=== PATIENT | male | born 1980 | race Caucasian/White ===

== ENCOUNTER 2019-04-12 10:18 | Emergency (ER) | payer MEDICAID ==
[~2019-04-12] VITALS: Ht 185.4 cm; Wt 67.3 kg
--- NOTE | 2019-04-12 10:25 | NUR ---
No answer to triage x 1.
--- NOTE | 2019-04-12 10:31 | NUR ---
No answer to triage x 2.
[2019-04-12 10:40] VITALS: BP 118/85
[2019-04-12] MEDS ORDERED: ACETAMINOPHEN 500 MG TABLET ONE (11:17)
[2019-04-12] MEDS ORDERED: CYCLOBENZAPRINE 10 MG TABLET ONE (11:17)
[2019-04-12] MEDS ORDERED: CYCLOBENZAPRINE 10 MG TABLET PO ONE (11:30)
[2019-04-12] MEDS ORDERED: ACETAMINOPHEN 500 MG TABLET PO ONE (11:30)
== END 2019-04-12 11:54 | disposition home or self-care (01) ==
LOC: ED 11:52
DX: S39.012A Strain of muscle, fascia and tendon of lower back, initial encounter (principal); Z90.5 Acquired absence of kidney; X58.XXXA Exposure to other specified factors, initial encounter; Y93.89 Activity, other specified; Y92.89 Other specified places as the place of occurrence of the external cause; Y99.8 Other external cause status
CPT/HCPCS: 99283

== ENCOUNTER 2019-05-20 21:10 | Emergency (ER) | payer MEDICAID ==
[~2019-05-20] VITALS: Ht 177.8 cm; Wt 65.1 kg
[2019-05-20 21:19] VITALS: BP 115/81
--- NOTE | 2019-05-20 21:38 | NUR ---
PT NOW INSTRUCTED 2X TO PLACE ALL BELONGINGS IN BAG AND PEE IN URINAL. PT VERBALIZED UNDERSTANDING.
--- NOTE | 2019-05-20 21:50 | NUR ---
pt instructed a third time to place belongings in bag and pee in urinal. pt again verbalized understanding.
--- NOTE | 2019-05-20 22:06 | NUR ---
i have now asked 4x to placed belonings in bag and pee in urnial. pt continues to verbalize understing but will not comply with my directions. JOANNA messer in to re-enforce protocols. pt again verbalized understanding.
--- NOTE | 2019-05-20 22:22 | NUR ---
urine sent to lab and all belongs placed in 1 bag and in locker.
[2019-05-20 22:44] LABS: AMPHETAMINE SCREEN, URINE Positive (Negative); BARBITURATE SCREEN, URINE Negative (Negative); BENZODIAZEPINE SCREEN, URINE Negative (Negative); CANNABINOID SCREEN, URINE Negative (Negative); COCAINE SCREEN, URINE Negative (Negative); METHADONE SCREEN, URINE Negative (Negative); OPIATE SCREEN, URINE Positive (Negative)
[2019-05-20] MEDS ORDERED: LORazepam 1MG TABLET ONE (22:52)
[2019-05-20] MEDS ORDERED: IBUPROFEN 600 MG TABLET ONE (22:52)
[2019-05-20] MEDS ORDERED: LORazepam 1MG TABLET PO ONE (23:00)
[2019-05-20] MEDS ORDERED: IBUPROFEN 600 MG TABLET PO ONE (23:00)
[2019-05-20 23:06] LABS: BASOPHILS # (AUTO) 0.04 x10^3/uL (0-0.1); BASOPHILS % (AUTO) 1 % (0-1); EOSINOPHILS # (AUTO) 0.11 x10^3/uL (0-0.4); EOSINOPHILS % (AUTO) 2 % (1-7); LYMPHOCYTES % (AUTO) 18 % (22-44); MD NO; MEAN CORPUSCULAR HGB CONC 32.9 g/dL (33.2-36.2); MEAN CORPUSCULAR VOLUME 97.3 fL (81-97); MEAN PLATELET VOLUME 8.3 fL (7.4-10.4); MONOCYTES # (AUTO) 0.38 x10^3/uL (0.2-0.8); MONOCYTES % (AUTO) 6 % (2-9); NEUTROPHILS # (AUTO) 4.97 x10^3/uL (1.8-6.8); NEUTROPHILS % (AUTO) 74 % (42-75); PLATELET COUNT 264 x10^3/uL (130-400); RED BLOOD COUNT 4.49 x10^6/uL (4.38-5.82); RED CELL DISTRIBUTION WIDTH 13.2 % (9.4-14.8)
[2019-05-20 23:17] LABS: ALANINE AMINOTRANSFERASE 100 U/L (12-78); ALBUMIN 3.7 g/dL (3.4-5.0); ANION GAP 7 mmol/L (5-15); CALCIUM 8.7 mg/dL (8.5-10.1); CHLORIDE 110 mmol/L (98-107)
[2019-05-20 23:20] LABS: ALKALINE PHOSPHATASE 75 U/L (45-117); BILIRUBIN,TOTAL 0.5 mg/dL (0.2-1.0); CREATININE 0.86 mg/dL (0.7-1.3); SALICYLATE LEVEL < 1.7 mg/dL (2.8-20.0); TOTAL PROTEIN 7.5 g/dL (6.4-8.2)
--- NOTE | 2019-05-21 00:40 | NUR ---
pt resting on gurney with eyes closed. respirations even and unlabored. sitter at doorway for frequent checks.
--- NOTE | 2019-05-21 01:37 | NUR ---
soc decided to d/c pt due to lack of participation in telepsych assessment
--- NOTE | 2019-05-21 01:56 | NUR ---
pt refusing to leave, escorted out by security. taxi voucher provided to half-way
== END 2019-05-21 01:58 | disposition home or self-care (01) ==
LOC: ED 22:11
DX: F11.10 Opioid abuse, uncomplicated (principal); F15.10 Other stimulant abuse, uncomplicated; F32.9 Major depressive disorder, single episode, unspecified; R45.851 Suicidal ideations; F17.210 Nicotine dependence, cigarettes, uncomplicated; Y99.0 Civilian activity done for income or pay
CPT/HCPCS: 36415; 80053; 80307; 85025; 99283